=== PATIENT | male | born 1975 | race Caucasian/White ===

== ENCOUNTER → 2022-05-21 09:22 | Outpatient (BNVA) | payer SELFPAY | PROVIDERS: Family Provider Family Medicine; PCP Nurse Practitioner Family; Referring Provider Family Medicine; Visit Provider Student in an Organized Health Care Education/Training Program | DX: M25.562 Pain in left knee (principal); S76.312A Strain of muscle, fascia and tendon of the posterior muscle group at thigh level, left thigh, initial encounter; X58.XXXA Exposure to other specified factors, initial encounter | CPT/HCPCS: 73560; 73565 ==

== ENCOUNTER 2022-08-04 13:31 | Outpatient (CLI) | payer SELFPAY ==
--- NOTE | 2022-08-04 13:45 | MRR_ITS ---
PROCEDURE INFORMATION: Exam: MR Left Lower Extremity Without Contrast, Femur Exam date and time: 08/04/2022 2:03 PM Age: 46 years old Clinical indication: Thigh; Left; Patient HX: Chronic, progressive lt leg pain to medial side of knee, dianne when touched, PT states electrical jolt is getting worse, no injury, lt leg weakness as well; Additional info: S76.312a - strain of muscle, fascia and tendon of the pos. . . TECHNIQUE: Imaging protocol: Magnetic resonance imaging of the left femur without contrast. COMPARISON: CR XR knees AP WB w LT lmt ORTH 05/21/2022 9:22 AM FINDINGS: There is a serpiginous tubular shaped mass interposed between the posterior margin of the vastus medialis muscle and anterior margin of the adductor musculature in situated medial to the neurovascular bundle within the lower aspect of the left thigh that extends for 13 cm in length and measuring up to 2 cm in diameter ending few cm above the level of the knee joint that is hyperintense on fat suppressed T2 sequence containing central nodular area of relatively low signal intensity suggestive of a plexiform neurofibroma. Other considerations would include venous or lymphatic malformation. Mass cannot be assessed for contrast enhancement is IV contrast was not administered. Mass appears separate from the femoral artery and vein. Remainder of the soft tissues in this area is unremarkable. Osseous structures are unremarkable. 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 Contrast enhanced examination suggested for more complete evaluation.
== END 2022-08-04 13:32 | disposition home or self-care (01) ==
LOC: RAD 13:39
PROVIDERS: PCP Nurse Practitioner Family; Visit Provider Student in an Organized Health Care Education/Training Program
DX: S76.312A Strain of muscle, fascia and tendon of the posterior muscle group at thigh level, left thigh, initial encounter (principal); M79.652 Pain in left thigh; X58.XXXA Exposure to other specified factors, initial encounter
CPT/HCPCS: 73718